=== PATIENT | male | born 1960 | race Caucasian/White ===

== ENCOUNTER 2016-11-28 22:04 | Observation (INO) | payer BC ==
[~2016-11-28 22:04] MED LIST: CARA1TAB6 PO; LANTUS2P SQ; LISI-519 PO; OXYC-259 PO; [UNRECOGNIZED DRUG - REMARK] PO
[2016-11-28] MEDS ORDERED: DIATRIZOATE MEGLUM/DIATRIZOATE SOD 120 ML BTL (for RAD DIAG) G-TUBE ONE (22:08)
[2016-11-28] MEDS ORDERED: SENNOSIDES 8.6 MG TAB PO PRN (22:30)
[2016-11-28] MEDS ORDERED: ACETAMINOPHEN 325 MG TAB PO PRN (22:30)
[2016-11-28] MEDS ORDERED: NALOXONE HCL 0.4 MG/ML AMP IV PRN (22:30)
[2016-11-28] MEDS ORDERED: SODIUM CHLORIDE 0.9% FLUSH 10 ML FLUSH IV FLUSH PRN (22:30)
[2016-11-28] MEDS ORDERED: BISACODYL 10 MG SUPP RECTAL PRN (22:30)
[2016-11-28] MEDS ORDERED: ONDANSETRON HCL 4 MG/2 ML VIAL IVP PRN (22:30)
--- NOTE | 2016-11-28 23:52 | HHI.HP ---
HPI Service [facility] Primary Care Physician [facility] Admission Diagnosis Diagnoses: Chief Complaint: weakness Travel History International Travel<30 Days: No Contact w/Intl Traveler <30 Da: No History of Present Illness 56 y/o male with a history of DM, gastroparesis s/p peg tube and j tube 3 weeks ago, HTN and sleep apnea presented to the ED with complaints of feeling weak and nausea. Patient states yesterday he was at a ball game and felt week and was given IV fluids by evac. Today he felt the same way and came in to be evaluated. He states 3 weeks ago he was treated at [facility] and a peg tube and J tube were placed for gastroparesis, he had nausea and vomiting 2 weeks later and chose to go to [facility] for treatment. He was treated at [facility] for dehydration and released last Thursday. He thought he was dehydrated again and came to the ED. He states he just feels weak and has intermittent nausea for the last 2 days. Denies any chest pain, sob, fever or chills. He is unsure what his true plan of care is regarding the feeding tubes and if it is permanent or not. He claims he has been using Glucerna 1.5 at 55 around the clock and clear liquids as he needs and this were the instructions given by [facility]. He denies any abdominal pain. Review of Systems Except as stated in HPI: all other systems reviewed are Neg Past Family Social History Past Medical History DM Gastroparesis Sleep apnea HTN Past Surgical History Peg tube J tube Cholecystectomy Reported Medications Reported Meds & Active Scripts Active Reported [Mood Pill] 1 Tab PO HS Oxycontin (Oxycodone HCl) 10 Mg Tab 10 Mg PO Q8HR Carafate (Sucralfate) 1 Gram Tab 1 Gm PO DAILY On empty stomach Lantus Inj (Insulin Glargine) 1,000 Unit/10 Ml Vial 20 Units SQ HS Lisinopril 5 Mg Tab 5 Mg PO DAILY Allergies: Coded Allergies: Penicillins (Verified Allergy, Intermediate, RASH, 11/28/16) metformin (Verified Allergy, Intermediate, ITCHES AND RASH, 11/28/16) Active Ordered Medications Current Medications Medications (Trade) Dose Ordered Sig/Areli Route Start Time Stop Time Status Last Admin (NS Flush) 2 ml UNSCH PRN IV FLUSH 11/28/16 22:30 (NS Flush) 2 ml BID IV FLUSH 11/29/16 09:00 (Tylenol) 650 mg Q4H PRN PO 11/28/16 22:30 (Zofran Inj) 4 mg Q6H PRN IVP 11/28/16 22:30 (Narcan Inj) 0.4 mg UNSCH PRN IV 11/28/16 22:30 (Senokot) 17.2 mg Q12H PRN PO 11/28/16 22:30 (Dulcolax Supp) 10 mg DAILY PRN RECTAL 11/28/16 22:30 (Levemir Inj) 20 units HS SQ 11/29/16 00:00 (Prinivil) 5 mg DAILY PO 11/29/16 09:00 (Carafate) 1 gm DAILY PO 11/29/16 09:00 Family History Mom: DM Social History Patient denies any tobacco, alcohol or illicit drug use Physical Exam Physical Exam GENERAL: This is a well-nourished, well-developed patient, in no apparent distress. SKIN: No rashes, ecchymoses or lesions. Cool and dry. HEAD: Atraumatic. Normocephalic. EYES: Pupils equal round and reactive. Extraocular motions intact. ENT: Nose without bleeding, purulent drainage or septal hematoma. Airway patent. NECK: Trachea midline. No JVD or lymphadenopathy. CARDIOVASCULAR: Regular rate and rhythm without murmurs, gallops, or rubs. RESPIRATORY: Clear to auscultation. Breath sounds equal bilaterally. No wheezes , rales, or rhonchi. GASTROINTESTINAL: Abdomen soft, non-tender, nondistended. Peg tube and J tube in place. MUSCULOSKELETAL: Extremities without clubbing, cyanosis, or edema. No joint tenderness, effusion, or edema noted. No calf tenderness. NEUROLOGICAL: Awake and alert. Motor and sensory grossly within normal limits. Normal speech. Caprini VTE Risk Assessment Caprini VTE Risk Assessment: No/Low Risk (score <= 1) Caprini Risk Assessment Model Point Value = 1 Point Value = 2 Point Value = 3 Point Value = 5 Age 41-60 Minor surgery BMI > 25 kg/m2 Swollen legs Varicose veins or History of unexplained or recurrent spontaneous Oral contraceptives or hormone replacement Sepsis (< 1 month) Serious lung disease, including pneumonia (< 1 month) Abnormal pulmonary function Acute myocardial infarction Congestive heart failure (< 1 month) History of inflammatory bowel disease Medical patient at bed rest Age 61-74 Arthroscopic surgery Major open surgery (> 45 min) Laparoscopic surgery (> 45 min) Malignancy Confined to bed (> 72 hours) Immobilizing plaster cast Central venous access Age >= 75 History of VTE Family history of VTE Factor V Leiden Prothrombin [id number] Lupus anticoagulant Anticardiolipin antibodies Elevated serum homocysteine Heparin-induced thrombocytopenia Other congenital or acquired thrombophilia Stroke (< 1 month) Elective arthroplasty Hip, pelvis, or leg fracture Acute spinal cord injury (< 1 month) Prophylaxis Regimen Total Risk Factor Score Risk Level Prophylaxis Regimen 0-1 Low Early ambulation 2 Moderate Order ONE of the following: *Sequential Compression Device (SCD) *Heparin 5000 units SQ BID 3-4 Higher Order ONE of the following medications: *Heparin 5000 units SQ TID *Enoxaparin/Lovenox 40 mg SQ daily (WT < 150 kg, CrCl > 30 mL/min) *Enoxaparin/Lovenox 30 mg SQ daily (WT < 150 kg, CrCl > 10-29 mL/min) *Enoxaparin/Lovenox 30 mg SQ BID (WT < 150 kg, CrCl > 30 mL/min) AND/OR *Sequential Compression Device (SCD) 5 or more Highest Order ONE of the following medications: *Heparin 5000 units SQ TID (Preferred with Epidurals) *Enoxaparin/Lovenox 40 mg SQ daily (WT < 150 kg, CrCl > 30 mL/min) *Enoxaparin/Lovenox 30 mg SQ daily (WT < 150 kg, CrCl > 10-29 mL/min) *Enoxaparin/Lovenox 30 mg SQ BID (WT < 150 kg, CrCl > 30 mL/min) AND *Sequential Compression Device (SCD) Assessment and Plan Problem List: (1) Hypokalemia ICD Code: E87.6 - Hypokalemia Status: Acute (2) Diabetes ICD Code: E11.9 - Type 2 diabetes mellitus without complications Status: Chronic (3) Gastroparesis ICD Code: K31.84 - Gastroparesis Status: Chronic (4) HTN (hypertension) ICD Code: I10 - Essential (primary) hypertension Status: Chronic Assessment and Plan 56 y/o male with a history of DM, gastroparesis s/p peg tube and j tube 3 weeks ago, HTN and sleep apnea presented to the ED with complaints of feeling weak and nausea. Weakness, suspect due to possible calorie protein malnutrition Albumin 3.1 -Consult dietary for recommendations on tube feeding Hypokalemia, Potassium 2.6, mag 2.2 -Supplementation ordered, trend bmp, replace as needed Gastroparesis, chronic patient s/p peg and J tube placement at [facility] with associated weakness and nausea Abdominal x ray reviewed and unremarkable -Consult GI for recommendations and evaluation of a plan -Cont home medication Carafate -Flush peg 200ml Q6 hr -Glucerna @55ml/hr with clear liquid tray -J tube to drainage. -Antiemetics as needed DM, chronic -Accu checks -Restart home Lantus HS HTN, chronic, currently controlled -Resume home medications, monitor vitals DVT prophylaxis: SCDs Discussed Condition With Patient and RN Irasema Rod Nov 28, 2016 23:52
[2016-11-28 23:57] VITALS: BP 127/79; PULSE 74; RESP 18; TEMP 98.1; O2SAT 98
[2016-11-29] MEDS ORDERED: INSULIN DETEMIR 100 UNITS/ML VIAL SQ SCH
[2016-11-29 06:07] VITALS: BP 115/64; PULSE 66; RESP 18; TEMP 98; O2SAT 99
[2016-11-29] MEDS ORDERED: GLUCAGON 1 MG/ML VIAL OTHER PRN (07:45)
[2016-11-29] MEDS ORDERED: DEXTROSE 50% IN WATER 50 ML VIAL(D50) IV PRN (07:45)
[2016-11-29 08:23] VITALS: BP 106/65; PULSE 103; RESP 18; TEMP 98; O2SAT 97
[2016-11-29] MEDS ORDERED: SUCRALFATE 1 GM TAB PO SCH (09:00)
[2016-11-29] MEDS ORDERED: SODIUM CHLORIDE 0.9% FLUSH 10 ML FLUSH IV FLUSH SCH (09:00)
[2016-11-29] MEDS ORDERED: LISINOPRIL 5 MG TAB PO SCH (09:00)
[2016-11-29 09:26] LABS: BICARBONATE 39.7 MEQ/L (21.0-32.0); MAGNESIUM 2.5 MG/DL (1.5-2.5)
[2016-11-29 09:36] LABS: POTASSIUM 2.8 MEQ/L (3.5-5.1)
[2016-11-29] MEDS: POTASSIUM CHLOR 20 MEQ PREMIX 100 ML IV SCH ×2 (10:15→12:15)
--- NOTE | 2016-11-29 10:19 | PD.CONS ---
HPI History of Present Illness This is a 56 year old Male with gastroparesis who had a G tube and surgical J tube placed at [facility]. He has been keeping the G tube unclamped and allowing it to drain out. He is taking clear liquids by mouth and taking J tube feedings through his J tube. The main problem he has now is recurrent dehydration and hypokalemia. He does not have any vomiting. No abdominal pain. He did not receive any instruction as to how to use his G tube. He probably has gastroparesis so he does not need the G tube set to drainage. He should keep it clamped off and unclamp it only if he gets nauseated. ROS: no fever or chills. No headache, sore throat, rash. otherwise complete ros is negative. PFSH Past Medical History DM Gastroparesis Sleep apnea HTN Past Surgical History Peg tube J tube Cholecystectomy Coded Allergies: Penicillins (Verified Allergy, Intermediate, RASH, 11/28/16) metformin (Verified Allergy, Intermediate, ITCHES AND RASH, 11/28/16) Medications Current Medications Medications (Trade) Dose Ordered Sig/Areli Route Start Time Stop Time Status Last Admin (NS Flush) 2 ml UNSCH PRN IV FLUSH 11/28/16 22:30 (NS Flush) 2 ml BID IV FLUSH 11/29/16 09:00 (Tylenol) 650 mg Q4H PRN PO 11/28/16 22:30 (Zofran Inj) 4 mg Q6H PRN IVP 11/28/16 22:30 (Narcan Inj) 0.4 mg UNSCH PRN IV 11/28/16 22:30 (Senokot) 17.2 mg Q12H PRN PO 11/28/16 22:30 (Dulcolax Supp) 10 mg DAILY PRN RECTAL 11/28/16 22:30 (Levemir Inj) 20 units HS SQ 11/29/16 00:00 11/29/16 00:00 (Prinivil) 5 mg DAILY PO 11/29/16 09:00 (Carafate) 1 gm DAILY PO 11/29/16 09:00 (D50w (Vial) Inj) 50 ml UNSCH PRN IV 11/29/16 07:45 (Glucagon Inj) 1 mg UNSCH PRN OTHER 11/29/16 07:45 (KCl Powder) 40 meq ONCE ONCE PO 11/29/16 11:00 11/29/16 11:01 Potassium Chloride 100 ml @ 50 mls/hr Q2H IV 11/29/16 10:15 11/29/16 14:14 Family History Mom: DM Social History Patient denies any tobacco, alcohol or illicit drug use GI Exam Vitals I&O Vital Signs Date Time Temp Pulse Resp B/P (MAP) Pulse Ox O2 Delivery O2 Flow Rate FiO2 11/29/16 08:23 98.0 103 18 106/65 (79) 97 11/29/16 06:07 98.0 66 18 115/64 (81) 99 11/28/16 23:57 98.1 74 18 127/79 (95) 98 I/O 11/28/16 11/28/16 11/28/16 11/29/16 11/29/16 11/29/16 07:00 15:00 23:00 07:00 15:00 23:00 Intake Total 200 ml 2692 ml Output Total 1650 ml Balance 200 ml 1042 ml Intake Oral 2692 ml Tube Irrigant 200 ml Output Urine Total 150 ml Gastric Drainage Total 1500 ml # Bowel Movements 1 Laboratory Test 11/29/16 08:30 11/29/16 08:36 Blood Urea Nitrogen 18 MG/DL Creatinine 0.86 MG/DL Random Glucose 125 MG/DL Calcium Level 9.2 MG/DL Magnesium Level 2.5 MG/DL Sodium Level 134 MEQ/L Potassium Level 2.8 MEQ/L Chloride Level 86 MEQ/L Carbon Dioxide Level 39.7 MEQ/L Anion Gap 8 MEQ/L Estimat Glomerular Filtration Rate 91 ML/MIN Physical Examination HEENT: Pupils round and reactive to light; normocephalic; atraumatic; no jaundice. Throat is clear. NECK: Neck is supple, no JVD, no lymphadenopathy. CHEST: Chest is clear to auscultation and percussion. CARDIAC: Regular rate and rhythm with no murmur gallop or rubs. ABDOMEN: Soft, nondistended, nontender; no hepatosplenomegaly; bowel sounds are present in all four quadrants. EXTREMITIES: No clubbing, cyanosis, or edema. SKIN: Normal; no rash; no jaundice. REMELT FURNACE EXPEDITER: No focal deficits; alert and oriented times three. Assessment and Plan Plan Imp: Dehydration and hypokalemia are due to constand drainage of his stomach contents via the G tube. He should keep it clamped at all times, unless he feels he will vomit. Plan: I have educated him regarding his G tube and keeping it clamped. We should do a gastrograf study via the G tube to make sure gastric contents will drain into the duodenum. He should lie on right side to help stomach drain if he becomes nauseated and if that does not work he may open his G tube to drain out, then reclamp once he feels better. Continue to use the J tube to receive nutrition OK for discharge to home today. Clinton Hassan MD Nov 29, 2016 10:19
--- NOTE | 2016-11-29 10:43 | RADRPT ---
EXAM DATE/TIME: 11/29/2016 10:13 [place] COMPARISON: ABDOMEN FLAT & UPRIGHT, November 28, 2016, 18:13. INDICATIONS : To check patient's Gtube placement. MEDICAL HISTORY : Gastroparesis. Hypertension Diabetes mellitus type II. SURGICAL HISTORY : Appendectomy. Cholecystectomy. g tube x 2 mos ENCOUNTER: Initial ACUITY: 2 days PAIN SCORE: 5/10 LOCATION: Bilateral g tube FINDINGS: There is contrast present within nondilated small bowel loops in the patient's J-tube. No dilated loo ps of bowel are seen. CONCLUSION: No evidence of obstruction. Jacob Carter MD on November 29, 2016 at 10:41 Board Certified Radiologist. This report was verified electronically.
[2016-11-29] MEDS ORDERED: POTASSIUM CHLORIDE 20 MEQ PWD PACKET PO ONE ×2 (11:00→15:00)
--- NOTE | 2016-11-29 11:26 | HHI.FF ---
Face to Face Verification Diagnosis: (1) Hypokalemia (2) Diabetes (3) HTN (hypertension) (4) Gastroparesis Home Health Nursing Order: Medical education Signs/symptoms of disease process Diabetic education Medication education-adverse effect Wound care and dressing changes Nursing assessment with vital signs I have seen patient Anthony Hills on 11/29/16. My clinical findings support the need for the requested home health care services because: Deconditioned w/ increased weakness Need for psychosocial assistance Injectable med education/admin I certify that my clinical findings support that this patient is homebound because: Post-op weakness Need for psychosocial assistance Fabrizio Chambers Nov 29, 2016 11:26
--- NOTE | 2016-11-29 11:39 | HHI.PR ---
Subjective Remarks The patient was feeling well and wanted to go home. He said he he was instructed on how to use his feeding tubes. He said he had follow-up with his primary care doctor soon. Objective Vitals Vital Signs Date Time Temp Pulse Resp B/P (MAP) Pulse Ox O2 Delivery O2 Flow Rate FiO2 11/29/16 08:23 98.0 103 18 106/65 (79) 97 11/29/16 06:07 98.0 66 18 115/64 (81) 99 11/28/16 23:57 98.1 74 18 127/79 (95) 98 I/O 11/28/16 11/28/16 11/28/16 11/29/16 11/29/16 11/29/16 07:00 15:00 23:00 07:00 15:00 23:00 Intake Total 200 ml 2692 ml Output Total 1650 ml Balance 200 ml 1042 ml Intake Oral 2692 ml Tube Irrigant 200 ml Output Urine Total 150 ml Gastric Drainage Total 1500 ml # Bowel Movements 1 Result Diagram: 11/29/16 0836 Imaging Last Impressions Abdomen X-Ray 11/29/16 0000 Signed Impressions: Service Date/Time: Tuesday, November 29, 2016 10:13 - CONCLUSION: No evidence of obstruction. Jacob Carter MD Objective Remarks GENERAL: This is a well-nourished, well-developed patient, in no apparent distress. SKIN: No rashes, ecchymoses or lesions. Cool and dry. HEAD: Atraumatic. Normocephalic. EYES: Pupils equal round and reactive. Extraocular motions intact. ENT: Nose without bleeding, purulent drainage or septal hematoma. Airway patent. NECK: Trachea midline. No JVD or lymphadenopathy. CARDIOVASCULAR: Regular rate and rhythm without murmurs, gallops, or rubs. RESPIRATORY: Clear to auscultation. Breath sounds equal bilaterally. No wheezes , rales, or rhonchi. GASTROINTESTINAL: Abdomen soft, non-tender, nondistended. Peg tube and J tube in place. MUSCULOSKELETAL: Extremities without clubbing, cyanosis, or edema. No joint tenderness, effusion, or edema noted. No calf tenderness. NEUROLOGICAL: Awake and alert. Motor and sensory grossly within normal limits. Normal speech. PSYCH: Mood and affect appropriate. Medications and IVs Current Medications Medications (Trade) Dose Ordered Sig/Areli Route Start Time Stop Time Status Last Admin (NS Flush) 2 ml UNSCH PRN IV FLUSH 11/28/16 22:30 (NS Flush) 2 ml BID IV FLUSH 11/29/16 09:00 11/29/16 09:00 (Tylenol) 650 mg Q4H PRN PO 11/28/16 22:30 (Zofran Inj) 4 mg Q6H PRN IVP 11/28/16 22:30 (Narcan Inj) 0.4 mg UNSCH PRN IV 11/28/16 22:30 (Senokot) 17.2 mg Q12H PRN PO 11/28/16 22:30 (Dulcolax Supp) 10 mg DAILY PRN RECTAL 11/28/16 22:30 (Levemir Inj) 20 units HS SQ 11/29/16 00:00 11/29/16 00:00 (Prinivil) 5 mg DAILY PO 11/29/16 09:00 11/29/16 09:00 (Carafate) 1 gm DAILY PO 11/29/16 09:00 11/29/16 09:00 (D50w (Vial) Inj) 50 ml UNSCH PRN IV 11/29/16 07:45 (Glucagon Inj) 1 mg UNSCH PRN OTHER 11/29/16 07:45 Potassium Chloride 100 ml @ 50 mls/hr Q2H IV 11/29/16 10:15 11/29/16 14:14 11/29/16 10:15 A/P Problem List: (1) Hypokalemia ICD Code: E87.6 - Hypokalemia Status: Acute (2) Diabetes ICD Code: E11.9 - Type 2 diabetes mellitus without complications Status: Chronic (3) Gastroparesis ICD Code: K31.84 - Gastroparesis Status: Chronic (4) HTN (hypertension) ICD Code: I10 - Essential (primary) hypertension Status: Chronic Assessment and Plan 56 y/o male with a history of DM, gastroparesis s/p peg tube and j tube 3 weeks ago, HTN and sleep apnea presented to the ED with complaints of feeling weak and nausea. Weakness, suspect due to possible calorie protein malnutrition Albumin 3.1 -Continue tube feeds. Hypokalemia, Potassium 2.6, mag 2.2 -Supplementation ordered, trend bmp, replace as needed. He will have a BMP as an outpt. He will be discharged on KCl supplementation. Gastroparesis, chronic patient s/p peg and J tube placement at [facility] with associated weakness and nausea Abdominal x ray reviewed and unremarkable -Consult GI for recommendations and evaluation of a plan. Appreciate input. The pt has been educated on his G/J tubes. -Cont home medication Carafate -Flush peg 200ml Q6 hr -Glucerna @55ml/hr with clear liquid tray -Antiemetics as needed -outpt follow-up at [facility]. DM, chronic -Accu checks -Restart home Lantus HS HTN, chronic, currently controlled -Resume home medications, monitor vitals DVT prophylaxis: SCDs Discharge Planning D/c home today after repeat BMP Cali Mcadams DO Nov 29, 2016 11:39
[2016-11-29 12:35] VITALS: BP 120/72; PULSE 104; RESP 20; TEMP 97.8; O2SAT 96
--- NOTE | 2016-11-29 13:25 | HHI.DCPOC ---
Discharge Care Plan Diagnosis: (1) Gastroparesis (2) Diabetes (3) Hypokalemia Goals to Promote Your Health * To prevent worsening of your condition and complications * To maintain your health at the optimal level Directions to Meet Your Goals Take your medications as prescribed Follow your dietary instruction Follow activity as directed Keep your appointments as scheduled Take your immunizations and boosters as scheduled If your symptoms worsen call your PCP, if no PCP go to Urgent Care Center or Emergency Room Smoking is Dangerous to Your Health. Avoid second hand smoke Call the 24-hour hour crisis hotline for domestic abuse at Cali Mcadams DO Nov 29, 2016 13:25
[2016-11-29 14:30] LABS: AUTOMATED NEUTROPHIL # 7.6 TH/MM3 (1.8-7.7); BASOPHIL # 0.1 TH/MM3 (0-0.2); BASOPHIL % 0.6 % (0.0-2.0); EOSINOPHIL # 0.1 TH/MM3 (0-0.4); HEMATOCRIT 41.1 % (39.0-51.0); HEMO FLAGS DIFF FINAL; LYMPHOCYTE # 1.2 TH/MM3 (1.0-4.8); NEUT % 76.4 % (16.0-70.0); PLATELET COUNT 205 TH/MM3 (150-450); RED BLOOD COUNT 4.66 MIL/MM3 (4.50-5.90); RED CELL DISTRIBUTION WIDTH 13.7 % (11.6-17.2); WHITE BLOOD COUNT 9.9 TH/MM3 (4.0-11.0)
[2016-11-29] MEDS ORDERED: POTA10PO PO (14:52)
[2016-11-29] MEDS ORDERED: POTASSIUM CHLOR 20 MEQ PREMIX 100 ML IV ONE (15:00)
[2016-12-26] MEDS ORDERED: MIRT30TA PO (17:55)
[2016-12-26] MEDS ORDERED: LORA-392 PO (17:55)
[2016-12-26] MEDS ORDERED: HYDR-3288 PO (19:02)
== END 2016-11-29 18:07 | disposition home or self-care (01) ==
LOC: NEDDLT 22:04 → NEPFCDU 22:07
PROVIDERS: ADMIT Hospitalist; ATTEND Hospitalist
DX: K31.84 Gastroparesis (principal); E11.43 Type 2 diabetes mellitus with diabetic autonomic (poly)neuropathy; E87.6 Hypokalemia; I10 Essential (primary) hypertension; E86.0 Dehydration; G47.30 Sleep apnea, unspecified; Z79.4 Long term (current) use of insulin
CPT/HCPCS: 74000; 74020; 80048; 80053; 82948; 83605; 83690; 83735; 84132; 84484; 85025; 85610; 85730; 93005; 97161; G0378; G8987; G8988; J3480; Q9963; 99281